=== PATIENT | female | born 1945 | race Caucasian/White ===

== ENCOUNTER 2018-06-18 10:51 | Outpatient (CLI) | payer OTHER ==
[2018-06-19] MEDS ORDERED: [UNRECOGNIZED DRUG - OTHER] PO (12:32)
[2018-06-19] MEDS ORDERED: VIT B12 PO (12:32)
[2018-06-19] MEDS ORDERED: VIT D PO (12:32)
[2018-06-19] MEDS ORDERED: LIDOCAINE PATCH (12:33)
[2018-06-19] MEDS ORDERED: ZOCOR20 MG PO (12:34)
[2018-06-19] MEDS ORDERED: ASPIRIN81 M1 PO (12:34)
== END 2018-06-18 12:56 | disposition home or self-care (01) ==
LOC: LAB 10:51
DX: M47.815 Spondylosis without myelopathy or radiculopathy, thoracolumbar region (principal); M99.43 Connective tissue stenosis of neural canal of lumbar region; M99.63 Osseous and subluxation stenosis of intervertebral foramina of lumbar region; Z01.818 Encounter for other preprocedural examination; G60.8 Other hereditary and idiopathic neuropathies

== ENCOUNTER 2018-06-20 06:43 | Day surgery (SDC) | payer OTHER ==
[~2018-06-20 06:43] MED LIST: ASPIRIN81 M1 PO; LIDOCAINE PATCH; VIT B12 PO; VIT D PO; ZOCOR20 MG PO; [UNRECOGNIZED DRUG - OTHER] PO
== END 2018-06-20 14:05 | disposition home or self-care (01) ==
LOC: CIR.AMB 06:43 → LAB 11:47 → CIR.AMB 12:21
DX: M48.061 Spinal stenosis, lumbar region without neurogenic claudication (principal)

== ENCOUNTER → 2022-06-06 07:31 | Outpatient (CLI) | payer OTHER | END | disposition home or self-care (01) | LOC: LAB 07:31 | PROVIDERS: ATTEND Surgery | DX: Z03.818 Encounter for observation for suspected exposure to other biological agents ruled out (principal); I10 Essential (primary) hypertension; R10.9 Unspecified abdominal pain; E04.1 Nontoxic single thyroid nodule; E03.8 Other specified hypothyroidism ==

== ENCOUNTER 2022-06-14 10:50 | Inpatient (IN) | payer OTHER ==
[~2022-06-14] VITALS: Ht 167.6 cm; Wt 142.0 kg
[2022-06-14] MEDS ORDERED: KETO10TA2 PO (18:25)
[2022-06-14] MEDS ORDERED: MIRALAX17 GM PO (18:25)
[2022-06-14] MEDS ORDERED: TRAMADOL HCL50 MG PO (18:25)
[2022-06-14] MEDS ORDERED: TYLENOL ARTHRI650 MG PO (18:25)
== END 2022-06-15 23:06 | disposition home or self-care (01) | DRG 351 ==
LOC: CIR.AMB 10:50 → O/R 22:53 → SURH 22:53
PROVIDERS: ADMIT Surgery; ATTEND Surgery
PROC: 0WUF4JZ Supplement Abdominal Wall with Synthetic Substitute, Percutaneous Endoscopic Approach (ICD-10-PCS; 2022-06-14)
PROC: 0YUA4JZ Supplement Bilateral Inguinal Region with Synthetic Substitute, Percutaneous Endoscopic Approach (ICD-10-PCS; principal; 2022-06-14 16:35)
DX: K40.20 Bilateral inguinal hernia, without obstruction or gangrene, not specified as recurrent (principal); K43.6 Other and unspecified ventral hernia with obstruction, without gangrene; Z20.822 Contact with and (suspected) exposure to COVID-19